=== PATIENT | female | born 1950 | race Caucasian/White ===

== ENCOUNTER → 2021-04-26 | Outpatient (CLI) | payer MEDICARE ==
[~2021-04-26] MED LIST: AMLO-187 PO; CLON-276 PO; LOSA1TAB25 PO
[2021-04-29 13:50] VITALS: BP 104/69
== END ==
LOC: LAB 12:00
PROVIDERS: ATTEND Internal Medicine Gastroenterology
DX: Z01.812 Encounter for preprocedural laboratory examination (principal); R13.10 Dysphagia, unspecified; K21.9 Gastro-esophageal reflux disease without esophagitis; Z20.822 Contact with and (suspected) exposure to COVID-19
CPT/HCPCS: C9803; U0003

== ENCOUNTER → 2021-04-29 | Day surgery (SDC) | payer MEDICARE ==
[~2021-04-29] MED LIST changes: +IPRATRPIUM/ALBUTEROL 0.5/2.5MG 3 ML NEBU. NEB PRN; +IV RINGERS SOLUTION,LACTATED 1,000 ML IV SCH; +LIDOCAINE 2% PF 5 ML VIAL. ONE; +MIDAZOLAM HCL PF 2 MG/2 ML VIAL. IV ONE; +ONDANSETRON PF 4 MG/2 ML VIAL. IV PRN; +PROPOFOL 10,000 MCG/ML (20ML) VIAL IV ONE
[2021-04-29 13:50] VITALS: BP 104/69
--- NOTE | 2021-05-03 15:10 | PATHOLOGY ---
[facility] Accession Number: [id number] . 01 Material submitted: . PART A: stomach - ANTRUM GASTRITIS PART B: colon - DESCENDING COLON POLYP. Modifiers: descending PART C: sigmoid colon - SIGMOID COLON POLYP . 01 Clinical history: . DYSPHAGIA/SCREENING EGD/COLON . 02 Diagnosis: A. Gastric biopsies, antrum: - Active chronic gastritis, moderate to marked, with Helicobacter organisms identified. . B. Colon biopsy, descending colon polyp: - Diminutive tubular adenoma. . C. Colon biopsy, sigmoid colon polyp: - Focal moderately-well differentiated colorectal adenocarcinoma, arising within a tubular adenoma showing high-grade dysplasia, with tumor invasion of muscularis mucosa - deep margin of biopsy negative for tumor. See comment. . (GAMALM:shannan; 05/03/2021) [facility] 05/03/2021 1448 Local . 02 Comment: Sections of the gastric antral biopsy show congestion and moderate to marked active chronic inflammation. A properly controlled immunoperoxidase stain for Helicobacter reveals numerous Helicobacter organisms. . Sections of the descending colon biopsy reveal a diminutive tubular adenoma showing no high-grade dysplasia or evidence of malignancy. . Sections of the sigmoid colon polyp reveal a tubular adenoma showing high-grade dysplasia. There is focal moderately-well differentiated adenocarcinoma arising within the polyp. The focus of adenocarcinoma appears to infiltrate the muscularis mucosa and does not obviously invade the submucosa. The deep margin of the polyp in this area is negative for tumor. . The case is also examined by Dr. Patel, who concurs with the diagnosis. . (GAMALM:shannan; 05/03/2021) . . Special stain performed: Immunoperoxidase stain for Helicobacter on A1 . 02 Electronically signed: . Ajay Arnold MD, Pathologist NPI- [id number] . 01 Gross description: . A. The specimen is received in formalin, labeled "Armando, Britany, antrum gastritis BX" and consists of a pale mujica tissue measuring 0.4 x 0.3 x 0.2 cm which is submitted in toto in A1. . B. The specimen is received in formalin, labeled "Roberts, Britany, descending polyp BX" and consists of a mujica irregular tissue measuring 0.2 x 0.2 x 0.2 cm which is submitted in toto in B1. . C. The specimen is received in formalin, labeled "Armando, Britany, sigmoid colon polyp" and consists of an intact, brown-escalera polypoid tissue (1.6 x 1.1 x 0.9 cm). The surgical margin is inked black. The specimen is serially sectioned and submitted sequentially, entirely in C1-C2. ([facility]; 05/02/2021) DKA/DKA 05/02/2021 1545 Local . 02 Pathologist provided ICD-10: K29.50, B96.81, D12.4, C18.7, D12.5 . 02 CPT . 541702, [id number], [id number], [id number] Specimen Comment: A courtesy copy of this report has been sent to [phone], [phone] Specimen Comment: [id number] Specimen Comment: Report sent to / DR BARBER Performed at: 01 [facility] [address], [place] [id number] MD Angelo Stewart MD Phone: [phone] Performed at: 02 [facility] [address] [place], [place] [id number] MD Ajay Arnold MD Phone: [phone]
== END | disposition home or self-care (01) ==
LOC: SURG 11:15
PROVIDERS: ATTEND Internal Medicine Gastroenterology
DX: Z12.11 Encounter for screening for malignant neoplasm of colon (principal); R13.10 Dysphagia, unspecified; R12 Heartburn; K21.00 Gastro-esophageal reflux disease with esophagitis, without bleeding; K29.50 Unspecified chronic gastritis without bleeding; K44.9 Diaphragmatic hernia without obstruction or gangrene; K22.2 Esophageal obstruction; D12.4 Benign neoplasm of descending colon; D12.5 Benign neoplasm of sigmoid colon; B96.81 Helicobacter pylori [H. pylori] as the cause of diseases classified elsewhere; K63.89 Other specified diseases of intestine; K31.89 Other diseases of stomach and duodenum; I10 Essential (primary) hypertension; Z79.899 Other long term (current) drug therapy; Z98.890 Other specified postprocedural states
CPT/HCPCS: 43239; 45380; 45381; 45385; 88305; 88342; J2001; J2704; J7120

== ENCOUNTER → 2021-07-12 | Outpatient (CLI) | payer MEDICARE ==
[2021-04-29 13:50] VITALS: BP 104/69
[~2021-07-12] MED LIST changes: -IPRATRPIUM/ALBUTEROL 0.5/2.5MG 3 ML NEBU. NEB PRN; -IV RINGERS SOLUTION,LACTATED 1,000 ML IV SCH; -LIDOCAINE 2% PF 5 ML VIAL. ONE; -MIDAZOLAM HCL PF 2 MG/2 ML VIAL. IV ONE; -ONDANSETRON PF 4 MG/2 ML VIAL. IV PRN; -PROPOFOL 10,000 MCG/ML (20ML) VIAL IV ONE
== END ==
LOC: LAB 10:37
PROVIDERS: ATTEND Internal Medicine Gastroenterology
DX: Z01.812 Encounter for preprocedural laboratory examination (principal); Z20.822 Contact with and (suspected) exposure to COVID-19; K22.10 Ulcer of esophagus without bleeding
CPT/HCPCS: U0003

== ENCOUNTER → 2021-07-15 | Day surgery (SDC) | payer MEDICARE ==
[~2021-07-15] MED LIST changes: +IPRATRPIUM/ALBUTEROL 0.5/2.5MG 3 ML NEBU. NEB PRN; +IV RINGERS SOLUTION,LACTATED 1,000 ML IV SCH; +LIDOCAINE 2% PF 5 ML VIAL. ONE; +MIDAZOLAM HCL PF 2 MG/2 ML VIAL. IV ONE; +ONDANSETRON PF 4 MG/2 ML VIAL. IV PRN; +PROPOFOL 100 ML IV ONE
[2021-07-15 12:58] VITALS: BP 114/66
== END | disposition home or self-care (01) ==
LOC: SURG 11:00
PROVIDERS: ATTEND Internal Medicine Gastroenterology
DX: R13.10 Dysphagia, unspecified (principal); R12 Heartburn; K44.9 Diaphragmatic hernia without obstruction or gangrene; K29.00 Acute gastritis without bleeding; K31.89 Other diseases of stomach and duodenum; K21.9 Gastro-esophageal reflux disease without esophagitis; Z79.899 Other long term (current) drug therapy; Z98.890 Other specified postprocedural states
CPT/HCPCS: 43235; 43450; J2001; J2704; J7120; 43249